=== PATIENT | male | born 1935 | race Caucasian/White ===

== ENCOUNTER 2017-12-27 19:24 | Inpatient (IN) | payer MEDICARE ==
[2017-12-27 19:43] LABS: #Eosinphils 0.3 thou/uL (0.0-0.7); #Lymphocytes 1.5 thou/uL (1.20-3.40); #Neutrophils 3.7 thou/uL (1.40-6.50); %Basophils 0.6 % (0.0-1.0); %Eosinophils 4.9 % (0.0-10.0); %Lymphocytes 23.2 % (21.0-51.0); %Monocytes 14.7 % (0.0-10.0); %Neutrophils 56.6 % (42.0-75.0); Hemoglobin 12.7 g/dL (14.0-18.0); Mean Corpuscular HGB CONC 33.6 g/dL (32.0-36.0); Mean Platelet Volume 7.2 fL (7.4-10.4); Platelet Count 237 thou/uL (130-400); RBC Distribution Width 12.8 % (11.5-14.5); Red Blood Cell (RBC) Count 3.75 mill/uL (4.70-6.10); White Blood Cell (WBC) Count 6.5 thou/uL (4.8-10.8)
--- NOTE | 2017-12-27 20:08 | RAD ---
PORTABLE CHEST: HISTORY: Chest pain. COMPARISON: 02/26/2017 FINDINGS: The lung colón are clear. No infiltrate or vascular congestion. Heart size is within the normal ra nge. Focal sclerosis seen in the posterior left third rib is stable. Evidence of old left rib fract ure is again noted. Linear stranding in the left lung base, probably atelectasis. IMPRESSION: No acute abnormality. POS: [facility]
[2017-12-27 20:21] LABS: ALT (SGPT) 17 U/L (8-55); AST (SGOT) 20 U/L (5-34); Albumin 3.5 g/dL (3.4-4.8); Alkaline Phosphatase 93 U/L (40-150); Anion Gap 12 mmol/L (10-20); BUN (Urea Nitrogen) 13 mg/dL (8.4-25.7); Bilirubin, Total 0.3 mg/dL (0.2-1.2); Calc. Creatinine Clearance 0 mL/min (70-130); Calcium 8.7 mg/dL (7.8-10.44); Carbon Dioxide 22 mmol/L (23-31); Estimated GFR-MDRD 66; Globulin 3.1 g/dL (2.4-3.5); Glucose 109 mg/dL (83-110); Potassium 3.8 mmol/L (3.5-5.1); Protein, Total 6.6 g/dL (5.8-8.1)
[2017-12-27 20:24] LABS: CKMB 0.7 ng/mL (0-6.6); Chloride 111 mmol/L (98-107); Sodium 141 mmol/L (136-145); Troponin I Less than 0.010 ng/mL (< 0.028)
[2017-12-27] MEDS ORDERED: Nitroglycerin 2% Ointment 1 INCH/1 GM Packet ONE ×2 (20:41→21:11)
[2017-12-27] MEDS ORDERED: Nitroglycerin 0.4 MG TAB (25 Tab Bottle) ONE (20:43)
[2017-12-27 20:48] LABS: CK (CPK) 96 U/L (30-200); Lipase 33 U/L (8-78)
[2017-12-27] MEDS ORDERED: Morphine 4 MG/ML VIAL ONE (21:11)
[2017-12-27] MEDS ORDERED: Ondansetron ODT 8 MG TAB ONE (21:27)
[2017-12-27] MEDS ORDERED: HYDROcodone/Acetaminophen 5/325 mg Tablet PO PRN ×2 (22:46)
[2017-12-27] MEDS ORDERED: Ondansetron HCl/PF 4 MG/2 ML Vial IVP PRN (22:46)
[2017-12-27] MEDS ORDERED: Acetaminophen 325 MG TAB PO PRN (22:46)
[2017-12-27] MEDS ORDERED: Ondansetron ODT 4 MG TAB SL PRN (22:46)
[2017-12-27 23:27] LABS: Troponin I Less than 0.010 ng/mL (< 0.028)
[2017-12-27] MEDS ORDERED: Morphine 4 MG/ML VIAL SLOW IVP PRN (23:28)
[2017-12-27] MEDS ORDERED: Sodium Chloride 0.9% 1,000 ML IV SCH (23:30)
[2017-12-27] MEDS ORDERED: Morphine 4 MG/ML VIAL SLOW IVP SCH (23:30)
[2017-12-27] MEDS: Ondansetron HCl/PF 4 MG/2 ML Vial SLOW IVP PRN (23:52)
[2017-12-28] MEDS: Sodium Chloride 0.9% 1,000 ML IV SCH ×4 (01:38→19:46)
[2017-12-28] MEDS: cloNIDine 0.2 MG TAB PO PRN ×2 (01:38→20:34)
[2017-12-28 02:15] VITALS: BMI 25.0
[2017-12-28 02:36] LABS: Troponin I Less than 0.010 ng/mL (< 0.028)
[2017-12-28] MEDS ORDERED: Nitroglycerin 2% Ointment 1 INCH/1 GM Packet TOP SCH (06:00)
[2017-12-28] MEDS ORDERED: Nitroglycerin 0.4 MG TAB (25 Tab Bottle) SL PRN (07:41)
[2017-12-28] MEDS ORDERED: Non-Formulary Item 1 EACH (Cholecalciferol (Vitamin D3) [Vitamin D3] 2,000 UNIT) PO SCH (09:00)
[2017-12-28] MEDS: Carvedilol 6.25 MG TAB PO SCH ×3 (09:40→16:24)
[2017-12-28] MEDS: Levothyroxine Sodium 88 MCG TAB PO SCH ×2 (09:41→11:19)
[2017-12-28] MEDS: Losartan 25 MG TAB PO SCH ×2 (09:41→11:19)
[2017-12-28] MEDS: TICAGRELOR 90 MG TABLET PO SCH ×3 (09:41→20:34)
--- NOTE | 2017-12-28 09:53 | HP ---
ADMITTING PHYSICIAN: Dr. Bar Corbett HISTORY OF PRESENT ILLNESS: The patient is an 82-year-old male with a known history of atherosclerot ic coronary artery disease. He has undergone stent placement in the past. He reported he had chest pain at home. He took some nitroglycerin at home which relieved his chest pain. [facility]. He has had previous history of atherosclerotic coronary artery disease. He amira lyle reports he is pain free, although he did note another bout of chest pain while in the emergency room at the hospital. He has also noted some nausea and vomiting. He has not noted any fever, no di arrhea. As noted, he had previous history of atherosclerotic coronary artery disease. He has underg one stent placement by Dr. Matos in the past. He is now home confinement and practically bed confined due to chronic back problems. Otherwise, no other medical complaints are noted. ALLERGIES: He is allergic to WILL INHIBITORS. CURRENT MEDICATIONS: Atorvastatin 80 mg daily, aspirin 81 mg daily, Brilinta 90 mg daily, carvedilol 12.5 mg daily, vitamin D 50,000 units daily, Levothyroxine 0.75 mg daily, losartan 25 mg daily, Xana x 0.5 mg b.i.d. PAST MEDICAL HISTORY: Atherosclerotic coronary artery disease, hypercholesterolemia, hypertension, c hronic urinary issues requiring catheterization, transient ischemic attacks, stroke. PAST SURGICAL HISTORY: Positive for appendectomy, multiple orthopedic and back surgeries. REVIEW OF SYSTEMS: GASTROINTESTINAL: Positive for some nausea and vomiting. CARDIOVASCULAR: Positive for chronic Ramesh catheter placement. CARDIOPULMONARY: Positive as above. NEUROLOGICAL: Positive as above. FAMILY HISTORY: Noncontributory. PHYSICAL EXAMINATION: VITAL SIGNS: Temperature 97.9, BP 171/85, O2 sats 95% on 2 liters, pulse 74. GENERAL: He is alert, active, does not appear in any distress. HEENT: Normocephalic, atraumatic. Extraocular muscles are intact. Conjunctivae clear. Throat brooke r. NECK: Supple, full range of motion, no masses. LUNGS: Reveal bilateral breath sounds. HEART: Regular rate and rhythm without murmur, gallops or rubs. ABDOMEN: Soft, nontender, bowel sounds are active. No hepatosplenomegaly is noted. There is no lily dence of rebound or guarding. NEUROLOGICAL: He is able to follow commands. He moves extremities. LABORATORY: His hemoglobin 12.7, hematocrit 37.8, white blood count 6.5. Chemistry: Sodium 141, po tassium 3.8, chloride 111, CO2 22, BUN 13, creatinine 1.08. Serial troponins x3 are negative. BNP s lightly elevated at 229. Chest x-ray is otherwise clear. EKG reveals sinus rhythm without acute changes. IMPRESSION: An 82-year-old male with chest pain that responded nitroglycerin with a previous history of atherosclerotic coronary artery disease. PLAN: The patient has been admitted to Telemetry. We will consult Cardiology for further treatment recommendations. I have discussed the possibility of cardiac catheterization with the patient. I al so discussed with the patient and his , the patient does not wish to be a full code. We will anmol e him a DNR per his request.
[2017-12-28] MEDS: Ondansetron HCl/PF 4 MG/2 ML Vial SLOW IVP PRN ×2 (12:48→20:34)
[2017-12-28 14:23] LABS: CKMB 4.9 ng/mL (0-6.6); Troponin I Less than 0.010 ng/mL (< 0.028)
--- NOTE | 2017-12-28 14:28 | CON ---
DATE OF CONSULTATION: 12/28/2017 PRIMARY DIRECTOR OF DIETARY: Dr. Kenn Matos REASON FOR CONSULTATION: Chest pain. HISTORY OF PRESENT ILLNESS: Mr. Shaw is an 82-year-old gentleman with past history of CAD, stat us post stent placement to the right coronary artery and circumflex artery in addition to FFR of the LAD, who recently presented with chest pain. It was moderate in nature. It began yesterday at aroun d 7:00 p.m. He was given nitroglycerin, then became nauseous. He states he was seen and evaluated i n the emergency room where he again got nitroglycerin in addition to morphine and had more nausea, vo miting. The nausea and vomiting has persisted. His CKs and troponins have been negative. BNP has a lso been mildly elevated at 229. His EKG does not show acute ST-T wave changes. PAST MEDICAL HISTORY: As above including hyperlipidemia, hypertension, TIA, CVA. PAST SURGICAL HISTORY: Appendectomy, back surgeries. FAMILY HISTORY: Negative. HOME MEDICATIONS: Include atorvastatin, aspirin, Brilinta, carvedilol, vitamin D, Levothyroxine, los arturo, Xanax. REVIEW OF SYSTEMS: Ten point review of systems reviewed, as above, otherwise negative. PHYSICAL EXAMINATION: VITAL SIGNS: Blood pressure 167/78, pulse 70, temperature 97.2. GENERAL: Patient is a pleasant male who is in no acute distress. The patient appears his stated age. NEUROLOGIC: The patient is alert and oriented times 3 with no focal neurologic deficits. HEENT: Sclerae without icterus. Mouth has moist mucous membranes with normal pallor. NECK: No JVD. Carotid upstroke brisk. No bruits bilaterally. LUNGS: Clear to auscultation with unlabored respirations. BACK: No scoliosis or kyphosis. CARDIAC: Regular rate and rhythm with normal S1 and S2. No S3 or S4 noted. No significant rubs, mur murs, thrills, or gallops noted throughout the precordium. PMI is not displaced. There is no parast ernal heave. ABDOMEN: Soft, nontender, nondistended. No peritoneal signs present. No hepatosplenomegaly. No abn ormal striae. EXTREMITIES: 2+ femoral and 2+ dorsalis pedis pulses. No cyanosis, clubbing, or edema. SKIN: No gross abnormalities. PERTINENT LABS: Hemoglobin 12.7, creatinine 1.09. IMPRESSION: 1. Nausea, vomiting. 2. Chest pain. 3. Coronary artery disease. 4. Status post stent placement. RECOMMENDATIONS: Mr. Shaw does have persistent nausea and vomiting. His CK and troponins have been negative. At this point, recommend repeating his CK and troponins and repeating his EKG. We wi ll give Zofran for relief. May benefit from a noninvasive stress study. Recommendation will be dict ated by current course.
[2017-12-28] MEDS ORDERED: ALPRAZolam 0.5 MG TAB PO SCH (21:00)
[2017-12-28] MEDS ORDERED: Atorvastatin Calcium 40 MG TAB PO SCH (21:00)
[2017-12-29] MEDS: Sodium Chloride 0.9% 1,000 ML IV SCH ×2 (05:22→17:20)
[2017-12-29] MEDS ORDERED: Levothyroxine Sodium 88 MCG TAB PO SCH (06:00)
--- NOTE | 2017-12-29 08:12 | PRG ---
DATE OF SERVICE: 12/29/2017 Mr. Shaw is awake. He is somewhat confused this morning, although he reports no chest pain. OBJECTIVE: VITAL SIGNS: His blood pressure is 185/88, O2 sats 92% on 2 liters, temperature 98.1. LUNGS: Clear. HEART: Reveals no murmur. LABORATORY: His troponin is less than 0.1, as well as CK-MB 4.9. TSH is elevated at 16.6. I believ e he has not been taking his thyroid medicine as prescribed. IMPRESSION: 1. History of atherosclerotic coronary disease with recent episode of angina, negative cardiac enzym es. 2. Hypothyroidism. PLAN: I will discuss his condition with the once Cardiology had made determination about furthe r recommendations. He possibly could be discharged later today on thyroid medicine as well as his ot her heart medicines.
[2017-12-29] MEDS: Losartan 25 MG TAB PO SCH (10:03)
[2017-12-29] MEDS: TICAGRELOR 90 MG TABLET PO SCH (10:04)
[2017-12-29] MEDS: Carvedilol 6.25 MG TAB PO SCH ×2 (10:05→17:23)
--- NOTE | 2017-12-29 13:10 | PDOC.CTH ---
Cardiology Progress Note - Subjective He is doing well. No more chest pain. - Objective Vital Signs Temp Pulse Resp BP Pulse Ox 12/29/17 07:35 98.3 F 56 L 18 92 L 12/29/17 07:28 98.3 F 56 L 18 155/84 H 92 L Weight 179 lb 14.4 oz 12/28/17 12/29/17 12/30/17 06:59 06:59 06:59 Intake Total 1136 Output Total 1975 Balance -839 - Physical Examination General/Neuro: alert & oriented x3, NAD Neck: no JVD present Lungs: unlabored respirations Heart: RRR Abdomen: NT/ND Extremities: other: (no edema.) - Telemetry Telemetry Rhythm: NSR - Labs Result Diagrams: 12/27/17 19:40 12/27/17 19:40 Troponin/CKMB CK-MB (CK-2) 4.9 ng/mL (0-6.6) 12/28/17 13:47 Troponin I Less than 0.010 ng/mL (< 0.028) 12/28/17 13:47 - Assessment/Plan 1. Chest pain 2. CAD, stable no ACS. 3. Nausea vomiting. PLAN: - Would not do stress test or LHC at this time as he has not had a tropoinn elevation. - He had a very complex post cath course and I would hesitate to take him back to the lab unless absolutely needed. - Would try to treat his chest pain with anti emetics and anti reflux medications for now. - Would keep in house until he is able to tolerate PO. - Will follow.
[2017-12-29 17:25] VITALS: BP 173/95
[2017-12-29 17:49] VITALS: TEMP 98.2
== END 2017-12-29 18:21 | disposition home or self-care (01) | DRG 303 ==
LOC: ERS 19:24 → 2NO 21:40
PROVIDERS: ADMIT Family Medicine; ATTEND Family Medicine
DX: I25.110 Atherosclerotic heart disease of native coronary artery with unstable angina pectoris (principal); Z95.5 Presence of coronary angioplasty implant and graft; G89.29 Other chronic pain; M54.9 Dorsalgia, unspecified; E78.00 Pure hypercholesterolemia, unspecified; I10 Essential (primary) hypertension; I25.2 Old myocardial infarction; Z86.73 Personal history of transient ischemic attack (TIA), and cerebral infarction without residual deficits; E03.9 Hypothyroidism, unspecified; Z98.1 Arthrodesis status
CPT/HCPCS: 36415; 71045; 80053; 82553; 83690; 83880; 84443; 84484; 85025; 93005; 93010; 94760; 96374; A4216; J2270; J2405; Q0162

== ENCOUNTER 2018-01-02 18:04 | Emergency (ER) | payer MEDICARE | END 2018-01-02 18:25 | disposition home or self-care (01) | LOC: SCSER 18:04 | DX: Z46.6 Encounter for fitting and adjustment of urinary device (principal); I25.2 Old myocardial infarction; E03.9 Hypothyroidism, unspecified; K59.00 Constipation, unspecified; N40.0 Benign prostatic hyperplasia without lower urinary tract symptoms; I10 Essential (primary) hypertension; F17.220 Nicotine dependence, chewing tobacco, uncomplicated; Z86.73 Personal history of transient ischemic attack (TIA), and cerebral infarction without residual deficits | CPT/HCPCS: 99283 ==

== ENCOUNTER 2018-01-03 16:53 | Emergency (ER) | payer MEDICARE ==
[2018-01-03] MEDS ORDERED: Ondansetron ODT 4 MG TAB ONE (17:52)
[2018-01-03] MEDS ORDERED: HYDROcodone/Acetaminophen 10/325 mg Tablet ONE (18:03)
[2018-01-03 18:09] LABS: Bilirubin Negative (Negative); Blood, Urine Large (Negative); Clarity Cloudy (Clear); Glucose, Urine (Dipstick) Negative (Negative); Leukocyte Trace (Negative); Nitrite Positive (Negative); Protein, Urine (Dipstick) > or equal to 300 mg/dL (Neg-Trace); Urobilinogen 0.2 mg/dL (0.2-1.0)
[2018-01-03 18:11] LABS: pH, Urine Greater/Equal 9.0 (5.0-9.0)
[2018-01-03 18:12] LABS: RBC/HPF GREATER THAN 50-TNTC HPF (0-3)
[2018-01-03 18:13] LABS: Bacteria/HPF 3+ HPF (None Seen); Squamous Epithelial 0-3 HPF (0-3); WBC/HPF 21-50 HPF (0-3)
[2018-01-03 18:14] LABS: Crystals/HPF 1+ TRIPLE PHOS HPF (Negative)
== END 2018-01-03 18:33 | disposition home or self-care (01) ==
LOC: SCSER 16:53
DX: R31.9 Hematuria, unspecified (principal); E03.9 Hypothyroidism, unspecified; N40.0 Benign prostatic hyperplasia without lower urinary tract symptoms; I10 Essential (primary) hypertension; I25.2 Old myocardial infarction; Z86.73 Personal history of transient ischemic attack (TIA), and cerebral infarction without residual deficits; Z79.891 Long term (current) use of opiate analgesic
CPT/HCPCS: 81003; 81015; 99283; Q0162

== ENCOUNTER 2018-03-17 13:26 | Outpatient (CLI) | payer MEDICARE ==
[2018-03-17 13:50] LABS: Hemoglobin 12.2 g/dL (14.0-18.0); Mean Corpuscular HGB CONC 34.2 g/dL (32.0-36.0); Mean Corpuscular Hemoglobin 34.4 pg (27.0-31.0); Mean Platelet Volume 6.4 fL (7.4-10.4); Platelet Count 286 thou/uL (130-400); RBC Distribution Width 12.5 % (11.5-14.5); Red Blood Cell (RBC) Count 3.56 mill/uL (4.70-6.10); White Blood Cell (WBC) Count 7.3 thou/uL (4.8-10.8)
[2018-03-17 13:57] LABS: INR-International Normal Ratio 1.1; PTT 30.2 SEC (22.9-36.1); Prothrombin Time 13.8 SEC (12.0-14.7)
[2018-03-17 14:11] LABS: Anion Gap 10 mmol/L (10-20); BUN (Urea Nitrogen) 15 mg/dL (8.4-25.7); Calc. Creatinine Clearance 0 mL/min (70-130); Calcium 8.5 mg/dL (7.8-10.44); Carbon Dioxide 25 mmol/L (23-31); Chloride 108 mmol/L (98-107); Estimated GFR-MDRD 70; Glucose 96 mg/dL (83-110); Potassium 4.1 mmol/L (3.5-5.1); Sodium 139 mmol/L (136-145)
== END 2018-03-17 13:27 | disposition home or self-care (01) ==
LOC: LABBT 13:26
PROVIDERS: ATTEND Urology
DX: Z01.812 Encounter for preprocedural laboratory examination (principal); N43.3 Hydrocele, unspecified; R33.9 Retention of urine, unspecified
CPT/HCPCS: 80048; 85027; 85610; 85730

== ENCOUNTER 2018-03-22 06:02 | Inpatient (IN) | payer MEDICARE ==
[2018-03-17 13:45] VITALS: BMI 25.1
[2018-03-22] MEDS ORDERED: Cefepime 2 GM in Sodium Chloride 0.9% 100 ML IVPB SCH (06:45)
[2018-03-22] MEDS ORDERED: Bupivacaine 0.25% HCL 30 ML VIAL ONE (07:14)
[2018-03-22] MEDS ORDERED: Bacitracin Zinc Ointment 30 gm TUBE ONE (07:14)
[2018-03-22] MEDS ORDERED: Fentanyl 100 MCG/2 ML VIAL ONE ×3 (07:22→10:45)
[2018-03-22] MEDS ORDERED: Nitroglycerin 0.4 MG TAB (25 Tab Bottle) SL PRN (09:24)
[2018-03-22] MEDS ORDERED: Acetaminophen 325 MG TAB PO PRN (09:25)
[2018-03-22] MEDS ORDERED: Docusate 100 MG CAP PO PRN (09:25)
[2018-03-22] MEDS ORDERED: Promethazine HCl 25 MG/ML VIAL IM PRN (09:33)
[2018-03-22] MEDS ORDERED: Ondansetron HCl/PF 4 MG/2 ML Vial IVP PRN (09:33)
[2018-03-22] MEDS ORDERED: Promethazine HCl 25 MG/ML VIAL SLOW IVP PRN (09:33)
[2018-03-22] MEDS ORDERED: D5 1/2 NS w/20 mEq KCL 1,000 ML ONE (09:49)
--- NOTE | 2018-03-22 09:53 | OP ---
DATE OF PROCEDURE: 03/22/2018 PREOPERATIVE DIAGNOSES: Left hydrocele/hematocele and urinary retention. POSTOPERATIVE DIAGNOSES: Left hydrocele/hematocele and urinary retention. PROCEDURE PERFORMED: Cystoscopy, placement of suprapubic tube (Lowsley technique) and left scrotal o rchiectomy. SURGEON: Dr. Vaibhav Rodriguez ANESTHETIC: General with local. ESTIMATED BLOOD LOSS: Less than 50 mL. DRAINS PLACED: He has a 22-Filipino Ramesh, he has a suprapubic tube with 30 mL in the balloon and he h as a 1-inch Issa drain through a dependent portion in the scrotal incision. INDICATIONS FOR SURGERY: This is an elderly male who has had a long history of difficulty with urina tion and more recently urinary retention. He has been managed with indwelling catheter as he has bee n on Brilinta. He has been able to at this point in time to get off his Brilinta, so he has come in for placement of suprapubic tube. He also has a large left hydrocele that he has had for years, in w [facility] we have drained in the office every 3 months without any difficulty. However, over the last 6 w ks he has developed acute and progressive enlargement of this and it is now obvious that he is actu ally bled into this space so he most likely he has not a hydrocele, but hematocele now. OPERATIVE TECHNIQUE: After obtaining written and verbal consent after receiving IV cefepime, he was taken to the operating suite. He was placed in the supine position on the treatment table. PlexiPul ses were placed on his lower extremities and turned on. He was given a general anesthetic and oral o bturator intubation. His lower abdomen was shaved and the scrotum was shaved for the above procedure . He was then placed in the dorsal lithotomy position, his indwelling Ramesh was removed and he was s terilely prepped and draped for cystoscopy and placement of suprapubic tube. A 22-Filipino scope was u sed, using a 30-degree lens and a video camera and monitor. It was passed well lubricated through th e male urethra into the bladder. The bladder had some debris in it, some small stones which were rem karlo. Once this was cleared, his bladder was examined with both the 30 and the 70 degree lens. We f illed his bladder up about 70 cm of water pressure until it was palpable until no more water would go into it. We then two fingerbreadths above the suprapubic bone, came in with a small spinal needle a nd anesthetize the skin in this region and worked this down until we could see into the anterior blad heriberto wall. It was in a good position. We made a small skin incision in this area, removed the cystos cope and passed the Lowsley retractor, brought it up to the undersurface of the lower abdomen along i n the suprapubic region where we made a little initial cut and we cut down on this until it exited ou t through this incision. We then used an 0 silk tie to direct the Lowsley and the catheter through t his incision into the bladder. We then removed the Lowsley into the stitch and then in under direct vision, inflated the balloon by replacing the cystoscope. It was draining clear urine. The wound wa s irrigated and we closed it around the edge of the catheter with a 0 silk stitch securing the cathet er also with a stitch. A dressing was placed. It was hooked up to drainage. He was then removed ba ck to the supine position, and he was reprepped and draped for the left hydrocele. An incision was m nickie in the lower anterior portion of the scrotum along the median rhaphe and taken down into the left hemiscrotum trying to separate the normal scrotal wall from the large hydrocele tissues without ente ring it. This was done and we were able to dissect up and out and deliver out the testicle inside of the large hydrocele isolating the cord up well above it. We then took the cord in 2 halves with hem ostats and then secured each half with large [place]a clamps before dividing it, passed the specimen off . We got hemostasis with a 0 chromic free ties and 0 chromic suture ligatures on the cord itself. T here was no excessive bleeding. We irrigated out the incision copiously with sterile water, checked for hemostasis. There was good hemostasis. We passed some topical 0.25% Marcaine without epinephrin e about 10 mL into the scrotum. We then closed the scrotum in 2 layers, the dartos with [id number] ght with 3-0 chromics and skin with 3-0 chromic U stitches. Before completing this, we passed a 1-in ch [place] drain through the most dependent portion of this incision, and then secured the drain to t he skin with a 3-0 chromic stitch also. At this point, fluffs and web panties were placed. His urin e was clear in the SP tube, so we did not place a Ramesh catheter. He was awakened and extubated and taken by stretcher to the recovery room.
[2018-03-22] MEDS ORDERED: Promethazine HCl 25 MG/ML VIAL ONE (10:46)
[2018-03-22] MEDS ORDERED: cloNIDine 0.1 MG TAB PO PRN (12:51)
--- NOTE | 2018-03-22 13:15 | CON ---
DATE OF CONSULTATION: 03/22/2018 ADMITTING PHYSICIAN: Vaibhav Rodriguez M.D. CONSULTING PHYSICIAN: Bar Corbett M.D. HISTORY OF PRESENT ILLNESS: Patient is an 82-year-old male, who has undergone suprapubic tube placem ent as well as left orchiectomy for hydrocele. Patient has been a patient of mine for many years. Dony rodriguez has a previous medical history of atherosclerotic coronary artery disease, cerebrovascular disease, multiple orthopedic back procedures, urinary retention. He has now been admitted postoperatively fo r the above-noted procedures. He has successfully undergone these procedures and I have spoken with his . No medical problems have been noted except for some mild elevation of blood pressure posto peratively. Otherwise, no medical issues are noted at this time. The patient is postoperative and d rowsy. There has been no chest pain, no nausea, vomiting, or diarrhea reported. ALLERGIES: Allergic to WILL INHIBITORS. CURRENT MEDICATIONS: Tylenol #3 as needed for pain, aspirin 81 mg daily, Lipitor 80 mg at bedtime, c arvedilol 12.5 mg p.o. b.i.d., cholecalciferol/vitamin D3 2000 units daily, levothyroxine 0.08 mcg da dionte, losartan 25 mg daily, trazodone 50 mg at bedtime. PAST MEDICAL HISTORY: Significant for the above-noted atherosclerotic coronary artery disease. He i s status post multiple heart attacks, also stent placement, and has been on Brilinta for one year and is now off. Medical history is also positive for hypercholesterolemia, hypertension, chronic urinar y issues, transient ischemic attack, previous stroke. PAST SURGICAL HISTORY: Positive for appendectomy, multiple orthopedic and back surgeries. REVIEW OF SYSTEMS: Could not be obtained. PHYSICAL EXAMINATION: VITAL SIGNS: Temperature is 98.6, pulse 78 and regular, BP is now 152/88. GENERAL: He is asleep, but arouses some. LUNGS: Clear. HEART: Reveals a regular rate and rhythm without murmur, gallops, or rubs. ABDOMEN: Soft, nontender, bowel sounds are present and active. No hepatosplenomegaly is noted. No rebound or guarding. EXTREMITIES: No clubbing, edema, or cyanosis. IMPRESSION: 1. Status post suprapubic tube placement. 2. Status post left orchiectomy. 3. History of atherosclerotic coronary artery disease. 4. Hypercholesterolemia. 5. Previous stroke. PLAN: 1. We will continue his home medications. 2. We will add p.r.n. hypertensive control medication, clonidine specifically. 3. We will continue to follow along with you.
[2018-03-22] MEDS: D5 1/2 NS w/20 mEq KCL 1,000 ML IV SCH ×2 (13:34→23:03)
[2018-03-22] MEDS: Carvedilol 6.25 MG TAB PO SCH (16:42)
[2018-03-22] MEDS: traZODone HCl 150 MG TAB PO SCH (21:29)
[2018-03-22] MEDS: Atorvastatin Calcium 40 MG TAB PO SCH (21:29)
[2018-03-23] MEDS: Cefepime 2 GM in Sodium Chloride 0.9% 100 ML IVPB SCH (06:11)
[2018-03-23] MEDS: Acetaminophen/Codeine 30-300mg Tablet PO PRN ×2 (06:11→17:24)
[2018-03-23] MEDS: Levothyroxine Sodium 88 MCG TAB PO SCH (06:24)
[2018-03-23] MEDS: Carvedilol 6.25 MG TAB PO SCH ×2 (08:27→17:15)
[2018-03-23] MEDS: Losartan 25 MG TAB PO SCH (08:27)
--- NOTE | 2018-03-23 13:43 | PRG ---
DATE OF SERVICE: 03/23/2018 SUBJECTIVE: Mr. Shaw is doing well. He is tolerated surgery well. He had no complaints. OBJECTIVE: VITAL SIGNS: Blood pressure is 143/63, temperature 98.7. LUNGS: Clear. HEART: Reveals no murmur. ABDOMEN: Soft, nontender. IMPRESSION: Status post left orchiectomy and suprapubic tube placement. PLAN: Continue current treatment.
[2018-03-23] MEDS ORDERED: Ondansetron ODT 4 MG TAB PO PRN (13:55)
[2018-03-23] MEDS: D5 1/2 NS w/20 mEq KCL 1,000 ML IV SCH (14:16)
[2018-03-23] MEDS: Ondansetron HCl/PF 4 MG/2 ML Vial IVP PRN (14:16)
[2018-03-23] MEDS: Atorvastatin Calcium 40 MG TAB PO SCH (20:42)
[2018-03-23] MEDS: traZODone HCl 150 MG TAB PO SCH (20:42)
[2018-03-24] MEDS: D5 1/2 NS w/20 mEq KCL 1,000 ML IV SCH ×2 (02:30→08:49)
[2018-03-24] MEDS: Acetaminophen/Codeine 30-300mg Tablet PO PRN ×3 (03:04→21:15)
[2018-03-24] MEDS: Levothyroxine Sodium 88 MCG TAB PO SCH (06:14)
[2018-03-24] MEDS: Cefepime 2 GM in Sodium Chloride 0.9% 100 ML IVPB SCH (06:14)
[2018-03-24] MEDS: Carvedilol 6.25 MG TAB PO SCH ×2 (08:48→15:46)
[2018-03-24] MEDS: Losartan 25 MG TAB PO SCH (08:49)
--- NOTE | 2018-03-24 12:57 | PRG ---
DATE OF SERVICE: 03/24/2018 SUBJECTIVE: Ms. Shaw is doing well postoperatively. OBJECTIVE: VITAL SIGNS: BP 133/69, O2 sat 94% on 2 liters, temperature 98.8. LUNGS: Clear. HEART: Reveals no murmur. IMPRESSION: 1. Status post left orchiectomy. 2. Suprapubic tube placement. 3. History of atherosclerotic coronary artery disease. PLAN: The patient is doing well postoperatively. We will sign off the case now. Contact me if you need any further help.
[2018-03-24] MEDS: Atorvastatin Calcium 40 MG TAB PO SCH (20:22)
[2018-03-24] MEDS: traZODone HCl 150 MG TAB PO SCH (20:22)
[2018-03-25] MEDS: Cefepime 2 GM in Sodium Chloride 0.9% 100 ML IVPB SCH (06:11)
[2018-03-25] MEDS: Levothyroxine Sodium 88 MCG TAB PO SCH (06:11)
[2018-03-25] MEDS: Acetaminophen/Codeine 30-300mg Tablet PO PRN (08:08)
[2018-03-25] MEDS: Losartan 25 MG TAB PO SCH (08:09)
[2018-03-25] MEDS: Carvedilol 6.25 MG TAB PO SCH (08:09)
[2018-03-25] MEDS: Ondansetron HCl/PF 4 MG/2 ML Vial IVP PRN (10:43)
[2018-03-25] MEDS: D5 1/2 NS w/20 mEq KCL 1,000 ML IV SCH (10:45)
[2018-03-25 11:32] VITALS: BP 157/73; TEMP 98.5
== END 2018-03-25 11:58 | disposition home or self-care (01) | DRG 712 ==
LOC: SDC 06:02 → SURG A 11:37
PROVIDERS: ADMIT Urology; ATTEND Urology
PROC: 0VTB0ZZ Resection of Left Testis, Open Approach (ICD-10-PCS; principal; 2018-03-22)
PROC: 0T9B30Z Drainage of Bladder with Drainage Device, Percutaneous Approach (ICD-10-PCS; 2018-03-22)
DX: N50.1 Vascular disorders of male genital organs (principal); R33.8 Other retention of urine; I25.10 Atherosclerotic heart disease of native coronary artery without angina pectoris; Z88.8 Allergy status to other drugs, medicaments and biological substances; Z79.899 Other long term (current) drug therapy; Z79.82 Long term (current) use of aspirin; I25.2 Old myocardial infarction; Z95.5 Presence of coronary angioplasty implant and graft; E78.5 Hyperlipidemia, unspecified; I10 Essential (primary) hypertension; Z86.73 Personal history of transient ischemic attack (TIA), and cerebral infarction without residual deficits; M48.061 Spinal stenosis, lumbar region without neurogenic claudication
CPT/HCPCS: 88305; 88307; G8978-GP-CM; G8979-GP-CK; J0692; J2405; J2550; J3010; J7050; S0020